=== PATIENT | female | born 1935 | race Caucasian/White ===

== ENCOUNTER 2017-06-01 09:57 | Inpatient (IN) | payer MEDICARE, OTHER ==
[~2017-06-01] VITALS: Ht 162.6 cm; Wt 52.3 kg
[~2017-06-01 09:57] MED LIST: ASPI325T PO; DONE5TAB14 PO; LEXA5TAB PO; LOVA40TA PO; NAME10TA PO; PROT40TA PO; SERO50TA4 PO; SYMB160A INH; SYNT25TA PO; VITA400C28 PO; VITATAB25 PO
[2017-06-01 09:59] VITALS: BP 148/71; PULSE 111; RESP 20; TEMP 97.9; O2SAT 99
[2017-06-01] MEDS ORDERED: FLUP5TAB (10:17)
[2017-06-01] MEDS ORDERED: ASPI-516 CHEW (10:17)
[2017-06-01] MEDS ORDERED: VITATAB25 PO (10:17)
[2017-06-01] MEDS ORDERED: MEMA1TAB PO (10:17)
[2017-06-01] MEDS ORDERED: LEVO50TA4 PO (10:17)
--- NOTE | 2017-06-01 10:28 | PD ---
HPI Chief Complaint: Psychiatric Symptoms Time Seen by Provider: 10:17 Travel History International Travel<30 days: No Contact w/Intl Traveler<30days: No Traveled to known affect area: No History of Present Illness HPI 81-year-old female presents to emergency with her caregiver Vicky complaining of auditory and visual hallucinations. Patient states that this is not normal for her. Vicky normally sits up her medication for her. Patient denies falls , pain, urinary discomfort or problems. Patient has a history of CVA and dementia for which she takes medication. Patient denies feeling weak, fever, chills, chest pain, shortness of breath, back pain. Patient states compliance with her medication. Vicky stated that patient believes she was answering a phone with a man however, states that this is not the case. Patient has also been mumbling. PFSH Past Medical History Asthma: Yes Cancer: Yes (LYMPHOMA LEFT LEG STATED BY PATIENT (ON MEDICAL RECORD)) Cardiovascular Problems: Yes (PACEMAKER) High Cholesterol: Yes Chemotherapy: Yes (LYMPHOMA) Dementia: Yes Gastrointestinal Disorders: Yes (PER MEDICAL RECORD) Genitourinary: Yes (PER MEDICAL RECORD) Kidney Stones: Yes Musculoskeletal: Yes (R ELBOW SURGERY) Neurologic: No (PER MEDICAL RECORD) Respiratory: Yes (PER MEDICAL RECORD) Past Surgical History Abdominal Surgery: Yes (colectomy) Cholecystectomy: Yes Other Surgery: Yes (PER MEDICAL RECORD) Social History Alcohol Use: No Tobacco Use: No Substance Use: No Allergies-Medications (Allergen,Severity, Reaction): Coded Allergies: No Known Allergies (Verified Adverse Reaction, Unknown, 06/01/17) Reported Meds & Prescriptions Reported Meds & Active Scripts Active Macrobid (Nitrofurantoin Monoh/Nitrofur Macro) 100 Mg Cap 100 Mg PO BID 7 Days Reported Aspirin 81 Mg Chew 81 Mg CHEW DAILY Vitamin D-[address] (Cholecalciferol) 1,000 Unit Tab 1,000 Units PO DAILY Memantine 5 Mg Tab 5 Mg PO BID Levothyroxine (Levothyroxine Sodium) 50 Mcg Tab 50 Mcg PO DAILY Fluphenazine (Fluphenazine HCl) 5 Mg Tab Review of Systems Except as stated in HPI: all other systems reviewed are Neg Physical Exam Narrative GENERAL: Well-nourished, well-developed patient. A+Ox3 in NAD. Anxious without her caregiver, Vicky around SKIN: Focused skin assessment warm/dry. HEAD: Normocephalic.Atraumatic EYES: No scleral icterus. No injection or drainage. PERRLA EOMI NECK: Supple, trachea midline. No JVD or lymphadenopathy. No midline tenderness CARDIOVASCULAR: Regular rate and rhythm without murmurs, gallops, or rubs. RESPIRATORY: Breath sounds equal bilaterally. No accessory muscle use. GASTROINTESTINAL: Abdomen soft, non-tender, nondistended. MUSCULOSKELETAL: No cyanosis, or edema. BACK: Nontender without obvious deformity. No CVA tenderness. No midline tenderness Data Data Last Documented VS Vital Signs Date Time Temp Pulse Resp B/P (MAP) Pulse Ox O2 Delivery O2 Flow Rate FiO2 06/01/17 18:15 97.9 75 20 150/81 (104) 97 Room Air Orders Orders Complete Blood Count With Diff (06/01/17 10:25) Comprehensive Metabolic Panel (06/01/17 10:25) Urinalysis - C+S If Indicated (06/01/17 10:25) Blood Glucose (06/01/17 10:25) Ecg Monitoring (06/01/17 10:25) Iv Access Insert/Monitor (06/01/17 10:25) Oximetry (06/01/17 10:25) Sodium Chloride 0.9% Flush (Ns Flush) (06/01/17 10:30) Sodium Chlorid 0.9% 500 Ml Inj (Ns 500 M (06/01/17 10:30) Ct Brain W/O Iv Contrast(Rout) (06/01/17 ) Alcohol (Ethanol) (06/01/17 10:30) Drug Screen, Random Urine (06/01/17 10:30) Thyroid Stimulating Hormone (06/01/17 10:30) Urine Culture (06/01/17 11:00) Lorazepam Inj (Ativan Inj) (06/01/17 12:37) Diphenhydramine Inj (Benadryl Inj) (06/01/17 13:45) Lorazepam Inj (Ativan Inj) (06/01/17 14:00) Lorazepam Inj (Ativan Inj) (06/01/17 14:15) Ceftriaxone Inj (Rocephin Inj) (06/01/17 14:15) Psych Screen (06/01/17 14:03) Labs Laboratory Tests Test 06/01/17 11:00 06/01/17 12:30 White Blood Count 5.5 TH/MM3 Red Blood Count 3.78 MIL/MM3 Hemoglobin 12.7 GM/DL Hematocrit 37.8 % Mean Corpuscular Volume 100.0 FL Mean Corpuscular Hemoglobin 33.6 PG Mean Corpuscular Hemoglobin Concent 33.6 % Red Cell Distribution Width 13.3 % Platelet Count 161 TH/MM3 Mean Platelet Volume 8.9 FL Neutrophils (%) (Auto) 65.8 % Lymphocytes (%) (Auto) 25.3 % Monocytes (%) (Auto) 6.7 % Eosinophils (%) (Auto) 1.7 % Basophils (%) (Auto) 0.5 % Neutrophils # (Auto) 3.6 TH/MM3 Lymphocytes # (Auto) 1.4 TH/MM3 Monocytes # (Auto) 0.4 TH/MM3 Eosinophils # (Auto) 0.1 TH/MM3 Basophils # (Auto) 0.0 TH/MM3 CBC Comment DIFF FINAL Differential Comment Urine Color YELLOW Urine Turbidity CLEAR Urine pH 6.5 Urine Specific [place] 1.013 Urine Protein NEG mg/dL Urine Glucose (UA) NEG mg/dL Urine Ketones NEG mg/dL Urine Occult Blood TRACE Urine Nitrite NEG Urine Bilirubin NEG Urine Urobilinogen LESS THAN 2.0 MG/DL Urine Leukocyte Esterase LARGE Urine RBC 3 /hpf Urine WBC 7 /hpf Urine Squamous Epithelial Cells <1 /hpf Urine Transitional Epithelial Cells <1 /hpf Urine Hyaline Casts 1 /lpf Urine Mucus FEW /lpf Microscopic Urinalysis Comment CATH-CULTURE IND Urine Opiates Screen NEG Urine Barbiturates Screen NEG Urine Amphetamines Screen NEG Urine Benzodiazepines Screen NEG Urine Cocaine Screen NEG Urine Cannabinoids Screen NEG Blood Urea Nitrogen 7 MG/DL Creatinine 0.80 MG/DL Random Glucose 93 MG/DL Total Protein 6.8 GM/DL Albumin 3.6 GM/DL Calcium Level 9.0 MG/DL Alkaline Phosphatase 57 U/L Aspartate Amino Transf (AST/SGOT) 21 U/L Alanine Aminotransferase (ALT/SGPT) 20 U/L Total Bilirubin 0.5 MG/DL Sodium Level 142 MEQ/L Potassium Level 3.4 MEQ/L Chloride Level 108 MEQ/L Carbon Dioxide Level 27.2 MEQ/L Anion Gap 7 MEQ/L Estimat Glomerular Filtration Rate 69 ML/MIN Thyroid Stimulating Hormone 3rd Gen 0.882 uIU/ML Ethyl Alcohol Level LESS THAN 3 MG/DL [facility] Medical Decision Making Medical Screen Exam Complete: Yes Emergency Medical Condition: Yes Differential Diagnosis Acute on chronic dementia versus psychosis versus delirium versus UTI Narrative Course 81-year-old female presents to emergency with her caregiver Vicky complaining of auditory and visual hallucinations. Patient states that this is not normal for her. Vicky normally sets up her medication for her. Patient denies taking excessive medication. Patient denies falls, pain, urinary discomfort or problems. Patient denies feeling weak, fever, chills, chest pain, shortness of breath, back pain. Patient states compliance with her medication. Patient has a history of CVA and dementia for which she takes medication. Vicky stated that patient believes she was answering a phone with a man however, states that this is not the case. Patient has also been mumbling. Denies any suicidal or homicidal ideations at this point. Head CT- stable Urine- WBCs, prescribe antibiotics for urinary tract infection Labs- Stable, except for mentioned UA above. I spoke with Brandin, the caregiver, and she stated that the patient has been worsening over the last 3 days. She states that she has been seeing animals and children that are not actually in the house. She also states that patient spoke to a man (and was not really on the phone) became upset and stated she was going to kill him. Brandin does not actually think patient is homicidal. Brandin stated that patient was admitted 2 weeks ago or a similar incident. She called the psychiatric unit here and they advised her to come to the emergency department for evaluation. She denies any new medication use or changes at this time. Brandin would appreciated an evaluation by psychiatry as patient was doing well as of last discharge from the beginning of this month but now is not. She is concerned that the medication needs to be adjusted. Patient was given 1 mg Ativan IV for irritability. Patient remained anxious. Spoke with my attending and she recommended Benadryl. This greatly reduced her anxiety. Further evaluation of the EMR demonstrated another chart, [id number], which was the admission the patient and caregiver spoke of. After review, I still feel that this patient would benefit from Psych eval. I spoke with my attending , Dr. Vuong and she agreed that pt would benefit from a psych eval based off her normal WBCs and presenting symptoms of hallucinations. Pt is medically cleared to see psych. Diagnosis Primary Impression: Urinary tract infection Qualified Codes: N30.00 - Acute cystitis without hematuria Scripts Nitrofurantoin Monohydrate Macrocrystals (Macrobid) 100 Mg Cap 100 MG PO BID for Infection for 7 Days, #14 CAP 0 Refills Prov: Patricia Voung MD 06/01/17 Condition: Stable [place] Jun 01, 2017 10:28
[2017-06-01] MEDS ORDERED: SODIUM CHLORID 0.9% 500 ML INJ 500 ML IV ONE (10:30)
[2017-06-01] MEDS ORDERED: SODIUM CHLORIDE 0.9% FLUSH 5 ML FLUSH IV FLUSH PRN (10:30)
[2017-06-01 11:19] LABS: AUTOMATED NEUTROPHIL # 3.6 TH/MM3 (1.8-7.7); BASOPHIL % 0.5 % (0.0-2.0); EOSINOPHIL # 0.1 TH/MM3 (0-0.4); EOSINOPHIL % 1.7 % (0.0-4.0); HEMATOCRIT 37.8 % (35.0-46.0); HEMO FLAGS DIFF FINAL; LYMPH % 25.3 % (9.0-44.0); LYMPHOCYTE # 1.4 TH/MM3 (1.0-4.8); MEAN CORPUSCULAR HEMOGLOBIN 33.6 PG (27.0-34.0); MEAN CORPUSCULAR HGB CONC 33.6 % (32.0-36.0); MONO % 6.7 % (0.0-8.0); NEUT % 65.8 % (16.0-70.0); PLATELET COUNT 161 TH/MM3 (150-450); RED BLOOD COUNT 3.78 MIL/MM3 (4.00-5.30); RED CELL DISTRIBUTION WIDTH 13.3 % (11.6-17.2); WHITE BLOOD COUNT 5.5 TH/MM3 (4.0-11.0)
[2017-06-01 11:25] LABS: BLOOD, URINE TRACE (NEG); GLUCOSE,URINE NEG (NEG); HYALINE CAST, URINE 1 /lpf (RARE); KETONE, URINE NEG (NEG); MUCUS URINE FEW /lpf (OCC); NITRITE,URINE NEG (NEG); PH, URINE 6.5 (5.0-8.5); SQUAMOUS EPITHELIAL CELL URINE <1 /hpf (0-5); TRANSITIONAL EPI CELLS, URINE <1 /hpf; URINE COLOR YELLOW (YELLW/STRAW)
[2017-06-01 11:26] LABS: COMMENT (UR) CATH-CULTURE IND; CULTURE IF INDICATED CATH CULTURE IND
--- NOTE | 2017-06-01 11:37 | RADRPT ---
EXAM DATE/TIME: 06/01/2017 10:59 [facility] COMPARISON: CT BRAIN W/O CONTRAST, February 10, 2014, 19:39. INDICATIONS : Hallucinations for 2 days RADIATION DOSE: 56.41 CTDIvol (mGy) MEDICAL HISTORY : None SURGICAL HISTORY : None. ENCOUNTER: Initial ACUITY: 2 days PAIN SCALE: 0/10 LOCATION: cranial TECHNIQUE: Multiple contiguous axial images were obtained of the head. Using automated exposure control and adj ustment of the mA and/or kV according to patient size, radiation dose was kept as low as reasonably a chievable to obtain optimal diagnostic quality images. DICOM format image data is available electro nically for review and comparison. FINDINGS: CEREBRUM: The ventricles and sulci are mildly prominent. There is a focal area of encephalomalacia in the left parasagittal frontal polar region and left temporal tip characteristic of old infarction. There is decreased attenuation in the white matter of the occipital lobes bilaterally. No evidence of mass ef fect, acute hemorrhage, or extra-axial blood. POSTERIOR FOSSA: Stable atrophy of the superior right cerebellum. 4th ventricle is in the midline. EXTRACRANIAL: The visualized portion of the orbits is intact. SKULL: The calvaria is intact. No evidence of skull fracture. CONCLUSION: 1. No acute findings in the brain. 2. Old infarctions in the left frontal and left temporal lobe, decreased attenuation in the occipital white matter, and right superior cerebellar atrophy characteristic of degenerative changes. Yves Mckoy MD on June 01, 2017 at 11:32 Board Certified Radiologist. This report was verified electronically.
[2017-06-01] MEDS: LORazepam 2 MG/ML VIAL ONE ×2 (12:37→13:42)
[2017-06-01 13:15] LABS: ALCOHOL LESS THAN 3 MG/DL (0-5)
[2017-06-01 13:33] LABS: ALT (GPT) 20 U/L (10-53); ANION GAP 7 MEQ/L (5-15); AST (GOT) 21 U/L (15-37); BICARBONATE 27.2 MEQ/L (21.0-32.0); BLOOD UREA NITROGEN 7 MG/DL (7-18); CHLORIDE 108 MEQ/L (98-107); GLOMERULAR FILTRATION RATE 69 ML/MIN (>89); POTASSIUM 3.4 MEQ/L (3.5-5.1); SODIUM (NA) 142 MEQ/L (136-145)
[2017-06-01 13:36] LABS: ALKALINE PHOSPHATASE 57 U/L (45-117); TOTAL BILIRUBIN ADULT 0.5 MG/DL (0.2-1.0)
[2017-06-01] MEDS ORDERED: diphenhydrAMINE HCL 50 MG/ML VIAL IV PUSH ONE (13:45)
[2017-06-01 13:51] VITALS: BP 135/80; PULSE 80; RESP 18; TEMP 97.9; O2SAT 99
[2017-06-01] MEDS ORDERED: LORazepam 2 MG/ML VIAL IM ONE (14:00)
[2017-06-01 14:07] VITALS: O2SAT 97
[2017-06-01] MEDS ORDERED: cefTRIAXone INJ 1,000 MG in SODIUM CHLORIDE 0.9% INJ 100 ML IV ONE (14:15)
[2017-06-01] MEDS ORDERED: LORazepam 2 MG/ML VIAL IV PUSH ONE (14:15)
[2017-06-01] MEDS ORDERED: CEPH-460 PO (14:49)
[2017-06-01] MEDS ORDERED: MACR100C2 PO (14:51)
[2017-06-01 17:12] VITALS: BP 140/72; PULSE 80; RESP 20; TEMP 97.9; O2SAT 97
[2017-06-01 18:15] VITALS: BP 150/81; PULSE 75; RESP 20; TEMP 97.9; O2SAT 97
[2017-06-01 21:00] VITALS: BP 117/58; PULSE 73; RESP 20; O2SAT 96
[2017-06-02 08:36] VITALS: BP 122/65; PULSE 73; RESP 20; O2SAT 95
[2017-06-02] MEDS ORDERED: HALOPERIDOL LACTATE 5 MG/ML AMP IM PRN (09:30)
[2017-06-02] MEDS ORDERED: ACETAMINOPHEN 325 MG TAB PO PRN (09:30)
[2017-06-02] MEDS ORDERED: HALOPERIDOL 2 MG TAB PO PRN (09:30)
[2017-06-02] MEDS ORDERED: POTASSIUM CHLORIDE 10 MEQ CONTROLLED RELEASE TAB PO ONE (09:30)
[2017-06-02] MEDS ORDERED: MAGNESIUM HYDROXIDE SUSP 30 ML CUP PO PRN (09:30)
[2017-06-02] MEDS ORDERED: diphenhydrAMINE HCL 50 MG CAP PO PRN (09:30)
[2017-06-02] MEDS ORDERED: diphenhydrAMINE HCL 50 MG/ML VIAL IM PRN (09:30)
[2017-06-02] MEDS ORDERED: ALUMINUM/MAGNESIUM/SIMETH 30 ML CUP PO PRN (09:30)
[2017-06-02] MEDS ORDERED: POTASSIUM CHLORIDE 20 MEQ CONTROLLED RELEASE TAB PO ONE (09:45)
--- NOTE | 2017-06-02 10:35 | MH ---
cc: JUAN CUNNINGHAM DATE OF ADMISSION: 06/02/2017 ADMISSION DIAGNOSES 1. 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 Rule out component of delirium from UTI. LEGAL STATUS: The patient is involuntary and is incapacitated to consent for medications / treatment. I have initiated a petition for involuntary psychiatric hospitalization and have consulted for second opinion. HISTORY OF PRESENT ILLNESS Ms. Duff is a 81-year-old female with a history of dementia who presents on a voluntary basis brought in by her caregiver out of concern for audiovisual hallucinations. The patient was apparently quite agitated in the emergency department and required medication with Ativan and Benadryl. She was found to have a possible UTI and has been started on Macrobid for this. Reviewing the electronic medical record, I note that see the patient was admitted under a different medical record number [id number] under the name Janet Duff from a May 16 through May 19 of this year under Dr. Mendoza. Patient seen and examined. Chart reviewed. Case discussed with nursing staff. The patient is likely an unreliable historian and seems fairly confused overall. She tells me this morning that she came in "I guess to be checked out." Presently she denies any audiovisual hallucinations, and I can elicit no delusional material. Mood is fair, and I can elicit no depressive or hypomanic / manic symptoms. She denies any suicidal or homicidal ideation but seems unreliable to contract for safety in her present state. She reports her sleep and appetite are fair. The patient is fairly sparse historian overall and the veracity of the information she provides below was to be questioned. No physical complaints. I did obtain collateral from her caregiver Brandin Hill at the number listed in the electronic medical record. She notes that she has been caring for the patient for the past 4 years. She reports that following the admission under Dr. Mendoza a few weeks ago the patient was temporarily somewhat improved but once again decompensated and began to hallucinate. Ms. Hill notes that the patient has a history of dementia and before that bipolar disorder. She also notes that the patient has a history of suicide attempts x2. She is particularly concerned about the patient's agitated and aggressive behavior of late. PAST PSYCHIATRIC HISTORY The patient denies any history of psychiatric diagnosis but see collateral from caregiver above. She denies any inpatient or outpatient psychiatric treatment but was recently admitted under Dr. Mendoza. She denies any history of suicide attempts but see above. FAMILY HISTORY The patient denies any family history of mental illness. CHEMICAL DEPENDENCY HISTORY: The patient denies any abuse of drugs or alcohol. SOCIAL HISTORY The patient reports that she lives with her day care center director Brandin and Brandin's son Brice, she is . She has one son who is in prison. She is high school educated. She is a retired teacher. She denies any history. Denies any access to guns or firearms. PAST MEDICAL HISTORY See electronic medical record. REVIEW OF SYSTEMS Limited as the patient is fairly poor historian but reviewed with the patient and negative except as noted above. PHYSICAL EXAMINATION VITAL SIGNS: Temperature is 97.9, pulse 73, respirations 20, blood pressure 122/65, pulse oximetry 95% on room air. IN GENERAL: Physical examination completed by the ED provider. On my examination today, the patient appears to be in no acute physical distress. No motor abnormalities noted. LABORATORY FINDINGS: Labs and vitals. Labs reviewed: CBC is unremarkable. CMP reveals hypokalemia and mildly decreased GFR at 69. TSH within normal limits. Toxicology negative. Alcohol level undetectable. Urinalysis reveals seven white blood cells and large leukocyte esterase. Urine culture is pending. MENTAL STATUS EXAM The patient is in hospital gown. She is fairly disheveled. She is awake, alert and oriented to person and 2017. She does know that she has a hospital. Her registration is 3/3 but her recall is 0/3 in 3 minutes. She is able to name two items but and repeat a phrase. She struggles with attention / concentration testing such as world backwards. No motor abnormalities noted. Speech is within normal limits for rate, tone and volume. Language and fund of knowledge seem reduced. Memory is as above and seems generally impaired on clinical exam. Mood is fair and affect blunted. Thought process reveals paucity of thought. No loosening of associations. No zachary delusional material elicited. Denies audiovisual hallucinations. Denies suicidal or homicidal ideation but seems unreliable to contract for safety at this time. Insight and judgment are poor. ASSESSMENT/PLAN This is a 81-year-old female with psychiatric history as detailed above who presents voluntarily for psychiatric evaluation. The patient has apparently failed to improve following her recent psychiatric hospitalization. She remains intermittently aggressive and hallucinating. Differential diagnosis would include dementia with behavioral disturbance including possible psychosis in the setting of dementia as well as delirium related to UTI. The patient requires psychiatric hospitalization at this time for safety, observation and stabilization. Admit inpatient. Involuntary status. I have completed first opinion. Consult for second opinion. Request health care surrogate and guardian advocate. Consult to the hospitalist. Check BMP, magnesium, hemoglobin A1c and lipid panel in the morning. Replete potassium. Check EKG for a QTc. To replace the Prolixin that the patient was previously started on I will start the patient on Seroquel 25 mg at bedtime for the management of behavioral disturbance in the setting of her dementia and possible delirium. I will continue her Namenda. I will continue to Macrobid for the UTI. I will continue the patient's Synthroid, aspirin and vitamin D supplement. Haldol as needed for severe agitation, Benadryl as needed for EPS, melatonin as needed for sleep. PT consult. Fall precautions. Vitals every shift. Counselor to see. Disposition planning. Estimated length of stay: 5-7 days. Juan Worley /9:35 AM /9:48 AM MTDD
--- NOTE | 2017-06-02 11:24 | PD.CONS ---
HPI Service [facility] Consult Requested By Primary Care Physician Martinez Grace MD Diagnoses: History of Present Illness 81-year-old female with a history of CVA, dementia, who is brought in by caregiver due to recent confusion, with auditory and visual hallucinations. Caregiver not at bedside at the time of examination. Patient says she feels all right. Denies any chest pain, shortness of breath, nausea, vomiting, diarrhea, constipation, dysuria. She reports generalized weakness, however seems to feel this is a chronic issue. Patient does not have very good historian, and past medical history obtained through chart review. Review of Systems Performed and negative except for history of present illness and past medical history. Past Family Social History Allergies: Coded Allergies: No Known Allergies (Verified Allergy, Unknown, 06/02/17) Past Medical History History of CVA History of depression with suicide attempt. Dementia Hypothyroidism Patient has a remote history of lymphoma. 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 Hypovitaminosis D. Stress hyperlipidemia. Past Surgical History Colectomy Cholecystectomy History of right elbow surgery. port placement Reported Medications Reported Meds & Active Scripts Active Macrobid (Nitrofurantoin Monoh/Nitrofur Macro) 100 Mg Cap 100 Mg PO BID 7 Days Reported Aspirin 81 Mg Chew 81 Mg CHEW DAILY Vitamin D-[address] (Cholecalciferol) 1,000 Unit Tab 1,000 Units PO DAILY Memantine 5 Mg Tab 5 Mg PO BID Levothyroxine (Levothyroxine Sodium) 50 Mcg Tab 50 Mcg PO DAILY Fluphenazine (Fluphenazine HCl) 5 Mg Tab Family History Attempted, patient is uncertain about family history. Social History Patient denies any history of alcohol, tobacco, substance abuse. She lives with caregiver, Brandin. Physical Exam Vital Signs Vital Signs Date Time Temp Pulse Resp B/P (MAP) Pulse Ox O2 Delivery O2 Flow Rate FiO2 06/02/17 08:36 73 20 122/65 (84) 95 Room Air 06/01/17 21:00 73 20 117/58 (77) 96 Room Air 06/01/17 18:15 97.9 75 20 150/81 (104) 97 Room Air 06/01/17 17:12 97.9 80 20 140/72 (94) 97 Room Air 06/01/17 14:07 97 Room Air 06/01/17 13:51 97.9 80 18 135/80 (98) 99 Room Air Physical Exam GENERAL: This is a well-nourished, well-developed patient, in no apparent distress. Oriented to year, not to month. SKIN: No rashes, ecchymoses or lesions. Cool and dry. HEAD: Atraumatic. Normocephalic. No temporal or scalp tenderness. EYES: Pupils equal round and reactive. Extraocular motions intact. No scleral icterus. No injection or drainage. ENT: Nose without bleeding, purulent drainage or septal hematoma. Throat without erythema, tonsillar hypertrophy or exudate. Uvula midline. Airway patent. NECK: Trachea midline. No JVD .. Supple, nontender, no meningeal signs. Patient does have 2 x 2 centimeter right cervical lymph node which appears mobile, nontender. No other lymphadenopathy. CARDIOVASCULAR: Regular rate and rhythm without murmurs, gallops, or rubs. RESPIRATORY: Clear to auscultation. Breath sounds equal bilaterally. No wheezes , rales, or rhonchi. GASTROINTESTINAL: Abdomen soft, non-tender, nondistended. No hepato-splenomegaly , or palpable masses. No guarding. MUSCULOSKELETAL: Extremities without clubbing, cyanosis, or edema. No joint tenderness, effusion, or edema noted. No calf tenderness. Negative Homans sign bilaterally. NEUROLOGICAL: Awake and alert. Cranial nerves II through XII intact. Motor and sensory grossly within normal limits. Five out of 5 muscle strength in all muscle groups. Normal speech. Laboratory Laboratory Tests Test 06/01/17 12:30 Blood Urea Nitrogen 7 Creatinine 0.80 Random Glucose 93 Total Protein 6.8 Albumin 3.6 Calcium Level 9.0 Alkaline Phosphatase 57 Aspartate Amino Transf (AST/SGOT) 21 Alanine Aminotransferase (ALT/SGPT) 20 Total Bilirubin 0.5 Sodium Level 142 Potassium Level 3.4 Chloride Level 108 Carbon Dioxide Level 27.2 Anion Gap 7 Estimat Glomerular Filtration Rate 69 Thyroid Stimulating Hormone 3rd Gen 0.882 Ethyl Alcohol Level LESS THAN 3 Date/Time Source Procedure Growth Status 06/01/17 11:00 Urine Catheterized Urine Urine Culture - Final 10-50,000 CFU/ML MIXED GRAM POSITIVE ... Complete Result Diagram: 06/01/17 1100 06/01/17 1230 Assessment and Plan Assessment and Plan //Dementia. //Psychosis. -CT brain with no acute findings. Old infarct seen. -TSH within treatment range. -Continue home memantine. - As per psychiatry. //Hypothyroidism.-Continue home medication. She states within normal limits. //Possible UTI. Only 7 white blood cells on UA. Large leukocyte esterase. Mixed davis on urine cx. Patient denies any symptoms. -Discontinue antibiotics. Continue to monitor.. //History of lymphoma. //Patient does have a 2 x 2 centimeter right cervical lymph node versus lipoma. - CBC unremarkable. This should be followed closely with workup as outpatient. //History of CVA. CT with no acute findings. Continue home aspirin. //Hypovitaminosis D. Chronic. Continue home medications. //History of asthma. Symbicort is on old Home med list. wioll continue pending home meds list comfirmation. /Hypokalemia. Mild. Potassium 3.4 on admission. Replaced. Monitor. //Hyperlipidemia. Pending confirmation of home medications. Discussed Condition With Patient, nurse James Hawkins MD Jun 02, 2017 11:24
[2017-06-02 13:49] VITALS: BP 128/61; PULSE 85; RESP 16; TEMP 98.1; O2SAT 99
[2017-06-02 18:00] VITALS: BP 119/58; PULSE 116; RESP 16; TEMP 97.3; O2SAT 97
[2017-06-02] MEDS: MELATONIN 5 MG TAB PO PRN (22:08)
[2017-06-02] MEDS: QUEtiapine FUMARATE 25 MG TAB PO SCH (22:08)
[2017-06-02] MEDS: MEMANTINE HCL 5 MG TAB PO SCH (22:09)
[2017-06-02] MEDS: BUDESONIDE-FORMOTEROL 80/4.5 MCG INHALER INH SCH (22:41)
[2017-06-02] MEDS: NITROFURANTOIN MONOHYD MACROCR 100 MG CAP PO SCH (22:41)
[2017-06-03] MEDS: LEVOTHYROXINE SODIUM 50 MCG TAB PO SCH (06:17)
[2017-06-03 06:25] VITALS: BP 114/55; PULSE 60; RESP 16; TEMP 97.8; O2SAT 98
[2017-06-03] MEDS: CHOLECALCIFEROL (VIT D3) 1000 UNIT TAB PO SCH (08:34)
[2017-06-03] MEDS: MEMANTINE HCL 5 MG TAB PO SCH ×2 (08:34→20:30)
[2017-06-03] MEDS: ASPIRIN 81 MG CHEW TAB CHEW SCH (08:34)
[2017-06-03] MEDS: BUDESONIDE-FORMOTEROL 80/4.5 MCG INHALER INH SCH ×2 (08:41→20:30)
[2017-06-03 08:42] LABS: ANION GAP 9 MEQ/L (5-15); BICARBONATE 25.4 MEQ/L (21.0-32.0); BLOOD UREA NITROGEN 13 MG/DL (7-18); CHLORIDE 107 MEQ/L (98-107); GLOMERULAR FILTRATION RATE 73 ML/MIN (>89); MAGNESIUM 1.7 MG/DL (1.5-2.5); POTASSIUM 3.8 MEQ/L (3.5-5.1); SODIUM (NA) 141 MEQ/L (136-145)
[2017-06-03 08:45] LABS: HDL CHOLESTEROL 54.3 MG/DL (40.0-60.0); LDL CHOLESTEROL 125 MG/DL (0-99)
[2017-06-03] MEDS: NICOTINE 21 MG/24 HR PATCH T-DERMAL SCH (09:00)
[2017-06-03] MEDS: NITROFURANTOIN MONOHYD MACROCR 100 MG CAP PO SCH ×2 (09:00→20:30)
[2017-06-03] MEDS: REMOVE OLD PATCH T-DERMAL SCH (09:00)
--- NOTE | 2017-06-03 12:19 | HHI.PYPN ---
Subjective Remarks This is a request for second opinion. Patient was seen and case discussed with nursing. Admission note was reviewed and I agree with its contents. Patient remains confused. She is alert and oriented 2. She says her hallucinations have resolved but she is not a good historian. Behaving well on the unit. Mood is "good." Denies suicidal homicidal ideation intent or plan. Per records she was agitated at home Mental Status Examination Appearance: Appropriate Consciousness: Alert Orientation: Person, Place Motor Activity: Other (not tested) Speech: Unremarkable Language: Other (hard of hearing) Fund of Knowledge: Adequate Attention and Concentration: Adequate Memory: Impaired Mood: Appropriate Affect: Appropriate Thought Process & Associations: Disorganized Thought Content: Appropriate Hallucination Type: None Suicidal Ideation: No Suicidal Plan: No Suicidal Intention: No Homicidal Ideation: No Homicidal Plan: No Homicidal Intention: No Insight: Poor Judgment: Poor Results Labs Test 06/03/17 08:05 Blood Urea Nitrogen 13 MG/DL Creatinine 0.76 MG/DL Random Glucose 89 MG/DL Calcium Level 9.4 MG/DL Magnesium Level 1.7 MG/DL Sodium Level 141 MEQ/L Potassium Level 3.8 MEQ/L Chloride Level 107 MEQ/L Carbon Dioxide Level 25.4 MEQ/L Anion Gap 9 MEQ/L Estimat Glomerular Filtration Rate 73 ML/MIN Triglycerides Level 148 MG/DL Cholesterol Level 209 MG/DL LDL Cholesterol 125 MG/DL HDL Cholesterol 54.3 MG/DL Cholesterol/HDL Ratio 3.84 RATIO Date/Time Source Procedure Growth Status 06/01/17 11:00 Urine Catheterized Urine Urine Culture - Final 10-50,000 CFU/ML MIXED GRAM POSITIVE ... Complete Vitals/IOs Vital Signs Date Time Temp Pulse Resp B/P (MAP) Pulse Ox O2 Delivery O2 Flow Rate FiO2 06/03/17 06:25 97.8 60 16 114/55 (74) 98 06/02/17 08:36 Room Air Intake and Output 06/03/17 06/03/17 06/04/17 08:00 16:00 00:00 Intake Total 120 ml Balance 120 ml Assessment & Plan Problem List: (1) Dementia with behavioral disturbance ICD Codes: F03.91 - Unspecified dementia with behavioral disturbance Status: Acute Assessment & Plan I agree with the first opinion to continue petition. Criteria include agitation and confusion before admission Justification for Cont. Inpt. Patient would decompensate in a less restrictive setting Andrei Pinon DO Jun 03, 2017 12:19
[2017-06-03 12:42] LABS: HEMOGLOBIN A1a 1.2 %; HEMOGLOBIN A1b 0.8 %; HEMOGLOBIN F 0.8 %; HEMOGLOBIN LA1C 1.9 %; HEMOGLOBIN P3 3.4 %
[2017-06-03 18:00] VITALS: BP 107/55; PULSE 85; RESP 16; TEMP 97.1; O2SAT 97
[2017-06-03] MEDS: QUEtiapine FUMARATE 25 MG TAB PO SCH (20:30)
[2017-06-03] MEDS: ATORVASTATIN 20 MG TAB PO SCH (20:30)
--- NOTE | 2017-06-03 23:13 | EKG ---
Date Performed: 06/02/2017 Time Performed: 10:35:37 PTAGE: 81 years EKG: Sinus rhythm WITH RARE VENTRICULAR PREMATURE COMPLEXES BORDERLINE ECG Compared to the PREVIOUS TRACING from 02/18/14, no significant change DOCTOR: Cedric Pyle Interpretating Date/Time 06/03/2017 23:12:42
[2017-06-04] MEDS: LEVOTHYROXINE SODIUM 50 MCG TAB PO SCH (05:28)
[2017-06-04 06:00] VITALS: BP 124/58; PULSE 71; RESP 20; TEMP 96.6
[2017-06-04] MEDS: CHOLECALCIFEROL (VIT D3) 1000 UNIT TAB PO SCH (08:43)
[2017-06-04] MEDS: ASPIRIN 81 MG CHEW TAB CHEW SCH (08:43)
[2017-06-04] MEDS: NITROFURANTOIN MONOHYD MACROCR 100 MG CAP PO SCH (08:44)
[2017-06-04] MEDS: MEMANTINE HCL 5 MG TAB PO SCH ×2 (08:44→20:00)
[2017-06-04] MEDS: REMOVE OLD PATCH T-DERMAL SCH (08:45)
[2017-06-04] MEDS: NICOTINE 21 MG/24 HR PATCH T-DERMAL SCH (08:45)
[2017-06-04] MEDS: BUDESONIDE-FORMOTEROL 80/4.5 MCG INHALER INH SCH ×2 (08:48→20:00)
--- NOTE | 2017-06-04 13:36 | HHI.PYPN ---
Subjective Remarks Patient was seen and case discussed with nursing. Patient is pleasant and cooperative with exam. Social on the unit." Feeling fine." Is alert and oriented 2. Tolerating medications well. Insight remains poor Mental Status Examination Appearance: Appropriate Consciousness: Alert Orientation: Person, Place Motor Activity: Other (not tested) Speech: Unremarkable Language: Other (hard of hearing) Fund of Knowledge: Adequate Attention and Concentration: Adequate Memory: Impaired Mood: Appropriate Affect: Appropriate Thought Process & Associations: Disorganized Thought Content: Appropriate Hallucination Type: None Suicidal Ideation: No Suicidal Plan: No Suicidal Intention: No Homicidal Ideation: No Homicidal Plan: No Homicidal Intention: No Insight: Poor Judgment: Poor Results Labs Date/Time Source Procedure Growth Status 06/01/17 11:00 Urine Catheterized Urine Urine Culture - Final 10-50,000 CFU/ML MIXED GRAM POSITIVE ... Complete Vitals/IOs Vital Signs Date Time Temp Pulse Resp B/P (MAP) Pulse Ox O2 Delivery O2 Flow Rate FiO2 06/04/17 06:00 96.6 71 20 124/58 (80) 06/03/17 18:00 97 06/02/17 08:36 Room Air Assessment & Plan Problem List: (1) Dementia with behavioral disturbance ICD Codes: F03.91 - Unspecified dementia with behavioral disturbance Status: Acute Assessment & Plan Continue current treatment plan Justification for Cont. Inpt. Patient will decompensate in a less restrictive setting Andrei Pinon DO Jun 04, 2017 13:36
[2017-06-04] MEDS ORDERED: ATOR20TA15 PO (14:49)
--- NOTE | 2017-06-04 14:50 | HHI.PR ---
Subjective Remarks Follow-up for dementia, hypothyroidism, hypokalemia. Patient is currently doing well. Ambulating in the hallway without any difficulty. She denies any chest pain, shortness of breath, fever or chills. She denies any dysuria or hematuria. Patient inquires about going home. Objective Vitals Vital Signs Date Time Temp Pulse Resp B/P (MAP) Pulse Ox O2 Delivery O2 Flow Rate FiO2 06/04/17 06:00 96.6 71 20 124/58 (80) 06/03/17 18:00 97.1 85 16 107/55 (72) 97 I/O 06/03/17 06/03/17 06/03/17 06/04/17 06/04/17 06/04/17 07:00 15:00 23:00 07:00 15:00 23:00 Intake Total 240 ml 600 ml Balance 240 ml 600 ml Intake Oral 240 ml 360 ml Tube Feeding 240 ml # Voids 1 Result Diagram: 06/01/17 1100 06/03/17 0805 Imaging Last Impressions Head CT 06/01/17 0000 Signed Impressions: Service Date/Time: May 10:59 - CONCLUSION: 1. No acute findings in the brain. 2. Old infarctions in the left frontal and left temporal lobe, decreased attenuation in the occipital white matter, and right superior cerebellar atrophy characteristic of degenerative changes. Yves Mckoy MD Objective Remarks GENERAL: Alert, NAD. SKIN: Warm and dry. HEAD: Normocephalic. EYES: No scleral icterus. No injection or drainage. NECK: Supple, trachea midline. No JVD or lymphadenopathy. CARDIOVASCULAR: Regular rate and rhythm without murmurs, gallops, or rubs. RESPIRATORY: Breath sounds equal bilaterally. No accessory muscle use. GASTROINTESTINAL: Abdomen soft, non-tender, nondistended. MUSCULOSKELETAL: No cyanosis, or edema. BACK: Nontender without obvious deformity. No CVA tenderness. Procedures None A/P Assessment and Plan 81-year-old female with a history of CVA, dementia, hypothyroidism who is brought in by caregiver due to recent confusion, with auditory and visual hallucinations. She was admitted to the psychiatry unit. Hospitalist service was consulted for medical management. Dementia. Psychosis. -CT brain with no acute findings. Old infarct seen. -TSH within treatment range (0.882). -Continue home memantine. -Management per psychiatry team. Suspected UTI - Urine cx grew mixed davis. No need for abx. History of CVA - continue aspirin 81mg Qday. Hypokalemia - Potassium improved from 3.4 --> 3.8. Dyslipidemia - Total cholesterol 209, LDL 125. Started patient on Lipitor 20mg QHS. (Rx printed for discharge). Full code. Ambulation Patient can be discharged from medical standpoint. We will sign off. Should you have any question, please feel free to contact us ([facility]). Arnold Vera DO Jun 04, 2017 2:50 pm
[2017-06-04 18:19] VITALS: BP 120/71; PULSE 104; RESP 18; TEMP 97.3; O2SAT 99
[2017-06-04] MEDS: QUEtiapine FUMARATE 25 MG TAB PO SCH (20:00)
[2017-06-04] MEDS: ATORVASTATIN 20 MG TAB PO SCH (20:00)
[2017-06-05] MEDS: LEVOTHYROXINE SODIUM 50 MCG TAB PO SCH (05:17)
[2017-06-05 05:38] VITALS: BP 103/51; PULSE 58; RESP 17; TEMP 96; O2SAT 98
[2017-06-05] MEDS: REMOVE OLD PATCH T-DERMAL SCH (09:00)
[2017-06-05] MEDS: NICOTINE 21 MG/24 HR PATCH T-DERMAL SCH (09:00)
[2017-06-05] MEDS: MEMANTINE HCL 5 MG TAB PO SCH ×2 (09:26→20:50)
[2017-06-05] MEDS: CHOLECALCIFEROL (VIT D3) 1000 UNIT TAB PO SCH (09:26)
[2017-06-05] MEDS: ASPIRIN 81 MG CHEW TAB CHEW SCH (09:26)
[2017-06-05] MEDS: BUDESONIDE-FORMOTEROL 80/4.5 MCG INHALER INH SCH ×2 (09:26→20:49)
--- NOTE | 2017-06-05 09:45 | HHI.PYPN ---
Subjective Chief Complaint: dementia with behavioral disturbance Remarks Patient seen and examined with nurse. Chart reviewed. Case discussed with nursing staff reports that the patient is well behaved on the unit but forgetful. Case discussed with counselor who has been in contact with patient' s caregiver who would like to see the patient placed in a structured living environment. On my examination today, the patient is oriented to person and location only. She remains confused but calm. She says that she feels "fine" and is hopeful for discharge soon. No mood or psychotic symptoms noted. Denies side effects from medications. No physical complaints. Review of Systems ROS Limitations: Poor Historian Except as stated in HPI: all other systems reviewed are Neg Mental Status Examination Appearance: Appropriate Consciousness: Alert Orientation: Person, Place Motor Activity: Normal gait, Other (no motor abnormalities noted) Speech: Unremarkable Language: Adequate Fund of Knowledge: Adequate Attention and Concentration: Adequate Memory: Impaired (on clinical exam) Mood: Appropriate, Good Affect: Appropriate Thought Process & Associations: Circumstantial Thought Content: Appropriate Hallucination Type: None Delusion Type: None Suicidal Ideation: No Suicidal Plan: No Suicidal Intention: No Homicidal Ideation: No Homicidal Plan: No Homicidal Intention: No Insight: Poor Judgment: Poor Results Labs Date/Time Source Procedure Growth Status 06/01/17 11:00 Urine Catheterized Urine Urine Culture - Final 10-50,000 CFU/ML MIXED GRAM POSITIVE ... Complete Labs reviewed. Urine culture reveals mixed davis, and I note that the hospitalist has discontinued the patient's Macrobid. Vitals/IOs Vital Signs Date Time Temp Pulse Resp B/P (MAP) Pulse Ox O2 Delivery O2 Flow Rate FiO2 06/05/17 05:38 96.0 58 17 103/51 (68) 98 06/02/17 08:36 Room Air Assessment & Plan Problem List: (1) Dementia with behavioral disturbance ICD Codes: F03.91 - Unspecified dementia with behavioral disturbance Status: Acute Assessment & Plan Continue Seroquel and Namenda as ordered. Continue to monitor on the inpatient unit. Hospitalist input noted and appreciated. Continue other medications and care as ordered. Justification for Cont. Inpt. Risk for decompensation in less restrictive environment. Discharge Planning Placement? Case discussed with counselor. Request HC Surrog/Guard Advoc?: Yes Deepak Balderrama MD Jun 05, 2017 09:45
[2017-06-05 15:54] VITALS: BP 85/45; PULSE 78; RESP 18; TEMP 98.1; O2SAT 98
[2017-06-05] MEDS: ATORVASTATIN 20 MG TAB PO SCH (20:50)
[2017-06-05] MEDS: QUEtiapine FUMARATE 25 MG TAB PO SCH (20:50)
[2017-06-06 05:44] VITALS: BP 95/52; PULSE 72; RESP 16; TEMP 97.7; O2SAT 96
[2017-06-06] MEDS: LEVOTHYROXINE SODIUM 50 MCG TAB PO SCH (06:12)
--- NOTE | 2017-06-06 08:26 | HHI.PYPN ---
Subjective Chief Complaint: dementia with behavioral disturbance Remarks Patient seen and examined with nurse. Chart reviewed. Case discussed in treatment team. Per nursing staff, the patient got mildly upset when her roommate was discharged but since then has been fairly pleasant. On my examination today, the patient describes her mood as "real good." She remains at her confused baseline. She does become a little bit upset when I discussed report from counselor that her long-time caregiver no longer feels she can manage patient in the home, but she maintains behavioral control. Denies side effects from medications. No physical complaints. Review of Systems ROS Limitations: Poor Historian Except as stated in HPI: all other systems reviewed are Neg Mental Status Examination Appearance: Appropriate Consciousness: Alert Orientation: Person, Place Motor Activity: Normal gait, Other (no abnormal motor movements noted) Speech: Unremarkable Language: Adequate Fund of Knowledge: Adequate Attention and Concentration: Adequate Memory: Impaired (remains impaired on clinical exam) Mood: Good Affect: Appropriate Thought Process & Associations: Circumstantial Thought Content: Appropriate Hallucination Type: None Delusion Type: None Suicidal Ideation: No Homicidal Ideation: No Insight: Poor Judgment: Poor Results Labs Date/Time Source Procedure Growth Status 06/01/17 11:00 Urine Catheterized Urine Urine Culture - Final 10-50,000 CFU/ML MIXED GRAM POSITIVE ... Complete Labs reviewed. No new labs. Vitals/IOs Vital Signs Date Time Temp Pulse Resp B/P (MAP) Pulse Ox O2 Delivery O2 Flow Rate FiO2 06/06/17 05:44 97.7 72 16 95/52 (66) 96 06/02/17 08:36 Room Air Vital signs reviewed. I do note the patient's blood pressure is a little on the lower side. Assessment & Plan Problem List: (1) Dementia with behavioral disturbance ICD Codes: F03.91 - Unspecified dementia with behavioral disturbance Status: Acute Assessment & Plan I will divide Seroquel dose to 12.5mg BID to provide more even antipsychotic coverage throughout the day and hopefully to improve lower BPs. Encourage fluids. Continue to monitor on the inpatient unit. Continue other medications and care as ordered. Justification for Cont. Inpt. High risk for decompensation in a less restrictive environment. Discharge Planning Placement. Case discussed with counselor. Request HC Surrog/Guard Advoc?: Yes Deepak Balderrama MD Jun 06, 2017 08:26
[2017-06-06] MEDS: CHOLECALCIFEROL (VIT D3) 1000 UNIT TAB PO SCH (08:31)
[2017-06-06] MEDS: MEMANTINE HCL 5 MG TAB PO SCH ×2 (08:31→21:05)
[2017-06-06] MEDS: ASPIRIN 81 MG CHEW TAB CHEW SCH (08:31)
[2017-06-06] MEDS: BUDESONIDE-FORMOTEROL 80/4.5 MCG INHALER INH SCH ×2 (08:31→21:05)
--- NOTE | 2017-06-06 08:54 | PD.TTN ---
Patient Problems 1. Discharge planning 2. Medication compliance 3. Knowledge deficit 4. Lack of coping skills Progress Toward Goals Provider Present: Dr. Suad Balderrama Provider Input: Patient may have changes in medication pending assessment today. Patient has been tolerating medications with no side effects. Patient has some irritability. Nurse(s) Input: Patient is appropatie and compliant with medications. Patient does not display behavioral issues on the unit and is observed to be in the day room with limited interactions with peers. Patient does at time become irritable but is easily redirected. Psychiatric Counselors Present: LATOSHA ModiSid Psych Therapist Input: Counselor spoke with patient's caregiver and was informed that patient may not be able to return back to home. Caregiver stated that if she is able to get out of lease, then patient may go to [facility] home where patient had resided before. Group Spec/RT/OT/KNOX Present: Saeed Rico, OT Group Spec/RT/OT/KNOX Input: Patient does not attend groups on the unit. Aileen Beltran [facility] Jun 06, 2017 08:54
[2017-06-06] MEDS ORDERED: PILL SPLITTER OTHER PRN (12:45)
[2017-06-06] MEDS: QUEtiapine FUMARATE 25 MG TAB PO SCH ×2 (13:41→21:05)
[2017-06-06 18:00] VITALS: BP 139/61; PULSE 73; RESP 18; TEMP 97.2; O2SAT 98
[2017-06-06] MEDS: ATORVASTATIN 20 MG TAB PO SCH (21:05)
[2017-06-07 05:35] VITALS: BP 102/49; PULSE 62; RESP 16; TEMP 97.8; O2SAT 97
[2017-06-07] MEDS: LEVOTHYROXINE SODIUM 50 MCG TAB PO SCH (05:55)
[2017-06-07] MEDS: CHOLECALCIFEROL (VIT D3) 1000 UNIT TAB PO SCH (09:08)
[2017-06-07] MEDS: QUEtiapine FUMARATE 25 MG TAB PO SCH ×2 (09:08→20:36)
[2017-06-07] MEDS: MEMANTINE HCL 5 MG TAB PO SCH ×2 (09:08→20:36)
[2017-06-07] MEDS: ASPIRIN 81 MG CHEW TAB CHEW SCH (09:09)
[2017-06-07] MEDS: BUDESONIDE-FORMOTEROL 80/4.5 MCG INHALER INH SCH ×2 (09:09→20:36)
--- NOTE | 2017-06-07 09:51 | HHI.PYPN ---
Subjective Chief Complaint: dementia with behavioral disturbance Remarks Patient seen and examined. Chart reviewed. Blood pressures seems improved with spreading out Seroquel dose. Case discussed with nursing staff. On my examination today, patient is anxious to have news about her discharge plan. She is calm and pleasant. I discuss collateral from caregiver yesterday, and I have subsequently learned from caregiver that she will accept patient back tomorrow, . No SI/HI. No psychotic symptoms. No side effects from medications. No physical complaints. Review of Systems ROS Limitations: Poor Historian Except as stated in HPI: all other systems reviewed are Neg Mental Status Examination Appearance: Appropriate Consciousness: Alert Orientation: Person, Place Motor Activity: Normal gait, Other (no motor abnormalities noted) Speech: Unremarkable Language: Adequate Fund of Knowledge: Adequate Attention and Concentration: Adequate Memory: Impaired (impaired) Mood: Good Affect: Appropriate, Anxious (mild) Thought Process & Associations: Circumstantial Thought Content: Appropriate Hallucination Type: None Delusion Type: None Suicidal Ideation: No Homicidal Ideation: No Insight: Poor Judgment: Poor Results Labs Date/Time Source Procedure Growth Status 06/01/17 11:00 Urine Catheterized Urine Urine Culture - Final 10-50,000 CFU/ML MIXED GRAM POSITIVE ... Complete Labs reviewed. No new labs. Vitals/IOs Vital Signs Date Time Temp Pulse Resp B/P (MAP) Pulse Ox O2 Delivery O2 Flow Rate FiO2 06/07/17 05:35 97.8 62 16 102/49 (66) 97 Intake and Output 06/07/17 06/07/17 06/08/17 08:00 16:00 00:00 Intake Total 0 ml Balance 0 ml Assessment & Plan Problem List: (1) Dementia with behavioral disturbance ICD Codes: F03.91 - Unspecified dementia with behavioral disturbance Status: Acute Assessment & Plan Continue Seroquel 12.5 mg twice daily as ordered. Continue to monitor on the inpatient unit. Continue other medications and care as ordered. Justification for Cont. Inpt. Final discharge planning Discharge Planning Anticipate discharge tomorr, Request HC Surrog/Guard Advoc?: Yes Deepak Balderrama MD Jun 07, 2017 09:51
[2017-06-07 18:00] VITALS: BP 120/59; PULSE 84; RESP 17; TEMP 97.3; O2SAT 98
[2017-06-07] MEDS: ATORVASTATIN 20 MG TAB PO SCH (20:36)
[2017-06-07] MEDS: MELATONIN 5 MG TAB PO PRN (20:39)
[2017-06-08 05:53] VITALS: BP 112/51; PULSE 64; RESP 18; TEMP 97.5; O2SAT 98
[2017-06-08] MEDS: LEVOTHYROXINE SODIUM 50 MCG TAB PO SCH (06:13)
[2017-06-08] MEDS ORDERED: MELA5 PO (07:25)
[2017-06-08] MEDS ORDERED: SERO25TA PO (07:25)
[2017-06-08] MEDS ORDERED: Budeson-Formot 80-4.5 Mcg Inh INH (07:25)
--- NOTE | 2017-06-08 07:25 | HHI.DS ---
Psychiatry Discharge Summary Inpatient Psychiatric care?: Yes Advance Directive: No Reason Not Provided: Due to Patient Condition Mental Health AdvanceDirective: No Health Care Proxy: No Admission Admission Date Jun 02, 2017 at 09:23 Admission Diagnosis: (1) Dementia with behavioral disturbance ICD Code: F03.91 - Unspecified dementia with behavioral disturbance Brief History Ms. Duff is a 81-year-old female with a history of dementia who presents on a voluntary basis brought in by her caregiver out of concern for audiovisual hallucinations. The patient was apparently quite agitated in the emergency department and required medication with Ativan and Benadryl. She was found to have a possible UTI and has been started on Macrobid for this. Reviewing the electronic medical record, I note that see the patient was admitted under a different medical record number H [id number] under the name Janet Duff from a May 16 through May 19 of this year under Dr. Mendoza. Patient seen and examined. Chart reviewed. Case discussed with nursing staff. The patient is likely an unreliable historian and seems fairly confused overall. She tells me this morning that she came in "I guess to be checked out." Presently she denies any audiovisual hallucinations, and I can elicit no delusional material. Mood is fair, and I can elicit no depressive or hypomanic / manic symptoms. She denies any suicidal or homicidal ideation but seems unreliable to contract for safety in her present state. She reports her sleep and appetite are fair. The patient is fairly sparse historian overall and the veracity of the information she provides below was to be questioned. No physical complaints. I did obtain collateral from her caregiver Brandin Hill at the number listed in the electronic medical record. She notes that she has been caring for the patient for the past 4 years. She reports that following the admission under Dr. Mendoza a few weeks ago the patient was temporarily somewhat improved but once again decompensated and began to hallucinate. Ms. Hill notes that the patient has a history of dementia and before that bipolar disorder. She also notes that the patient has a history of suicide attempts x2. She is particularly concerned about the patient's agitated and aggressive behavior of late. Tobacco Use In Past 30 Days: No Tobacco Past 30 Days Alcohol Use: Never Hospital Course Patient was admitted to a locked, inpatient psychiatric unit. A general medical consultation was obtained. Appropriate precautions were in place throughout patient's hospital stay. Patient was seen and examined on unit by psychiatry and also visited by counselor. Psychotropic medications were adjusted. Patient tolerated medications well without side effects. Patient had improvement in presenting psychiatric symptomatology during the course of her hospital stay. There was no evidence of significant behavioral disturbance on the inpatient unit. There was no evidence of any suicidality or homicidality on the inpatient unit. Collateral was obtained from patient's caregiver who in the end decided to accept the patient back home. Counselor has made the necessary arrangements. On the day of discharge: Patient seen and examined. Chart reviewed. Case discussed with nursing staff. No behavioral issues noted overnight. Case discussed with counselor. On my examination today , the patient is calm and pleasant. She denies any suicidal or homicidal ideation, intent or plan and contracts for safety. She remains at her confused baseline. No mood or psychotic symptoms noted. She is in good spirits. She is excited about returning home to her caregiver. She denies side effects from medications. No physical complaints. Suicide and violence risk assessment on day of discharge both suggest lower imminent risk, although she remains somewhat chronically unpredictable as a consequence of her dementing illness, but this risk would not be ameliorated by a longer inpatient psychiatric hospital stay. Patient's level of function is adequate for planned level of outpatient care. Patient has maximized benefit from this inpatient psychiatric hospital stay and will be discharged into caregivers care today with psychiatric follow-up as arranged by counselor. Patient is also to follow-up with primary care. Patient to return to psychiatric emergency room for any concerning psychiatric symptoms. Results Blood Pressure 112 / 51 Vital Signs Date Time Temp Pulse Resp B/P (MAP) Pulse Ox O2 Delivery O2 Flow Rate FiO2 06/08/17 05:53 97.5 64 18 112/51 (71) 98 Laboratory Results Test 06/03/17 08:05 Cholesterol Level 209 MG/DL (120-200) HDL Cholesterol 54.3 MG/DL (40.0-60.0) Hemoglobin A1c 5.2 % (4.3-6.0) LDL Cholesterol 125 MG/DL (0-99) Triglycerides Level 148 MG/DL (42-150) Summary of Procedures None done Imaging Last Impressions Head CT 06/01/17 0000 Signed Impressions: Service Date/Time: May 10:59 - CONCLUSION: 1. No acute findings in the brain. 2. Old infarctions in the left frontal and left temporal lobe, decreased attenuation in the occipital white matter, and right superior cerebellar atrophy characteristic of degenerative changes. Yves Mckoy MD Pending results at discharge: No Medications # of Antipsychotic meds at D/C: 1 Approp Antipsych med options 1 - Minimum of three failed multiple trials of monotherapy. 2 - Documented plan to taper to monotherapy due to previous use of multiple meds OR cross-taper in progress at D/C. 3 - Documentation of augmentation of Clozapine. 4 - Justification other than those listed in allowable values 1-3, document here : Discharge Discharge Date: Jun 08, 2017 Discharge Diagnosis: (1) Dementia with behavioral disturbance Diagnosis: Principal (behavioral disturbance resolved) ICD Code: F03.91 - Unspecified dementia with behavioral disturbance Status: Acute Pt Condition on Discharge: Stable Discharge Disposition: Discharge Home Discharge Instructions Diet Instructions: As Tolerated, No Restrictions Activities you can perform: Weight Bearing as Natalia Scheduled Appointment: as per counselor's notes New Medications: Atorvastatin (Atorvastatin) 20 Mg Tab 20 MG PO HS for Cholesterol Management, #90 TAB 3 Refills Melatonin (Melatonin) 5 Mg Tab 5 MG PO HS PRN for INSOMNIA for 15 Days, TAB 1 Refill Quetiapine (Seroquel) 25 Mg Tab 12.5 MG PO BID for Mental Health for 15 Days, #15 TAB 1 Refill [Budeson-Formot 80-4.5 Mcg Inh] () 60 PUFF AERO 1 PUFF INH Q12HR for Health for 15 Days, 1 Refill Continued Medications: Aspirin (Aspirin) 81 Mg Chew 81 MG CHEW DAILY, TAB 0 Refills Cholecalciferol (Vitamin D-[address]) 1,000 Unit Tab 1000 UNITS PO DAILY for Nutritional Supplement, #1 BOTTLE 0 Refills Levothyroxine (Levothyroxine) 50 Mcg Tab 50 MCG PO DAILY for Thyroid, #30 TAB 0 Refills Memantine (Memantine) 5 Mg Tab 5 MG PO BID for Alzheimer's Dementia, TAB 0 Refills Discontinued Medications: Fluphenazine (Fluphenazine) 5 Mg Tab Nitrofurantoin Monohydrate Macrocrystals (Macrobid) 100 Mg Cap 100 MG PO BID for Infection for 7 Days, #14 CAP 0 Refills Discharge Time <= 30 minutes Mental Status Examination Appearance: Appropriate Consciousness: Alert Orientation: Person, Place Motor Activity: Normal gait, Other (no abnormal motor movements noted) Speech: Unremarkable Language: Adequate Fund of Knowledge: Adequate Attention and Concentration: Adequate Memory: Impaired (remains impaired on clinical exam) Mood: Good Affect: Appropriate, Euthymic Thought Process & Associations: Circumstantial Thought Content: Appropriate Hallucination Type: None Delusion Type: None Suicidal Ideation: No Suicidal Plan: No Suicidal Intention: No Homicidal Ideation: No Homicidal Plan: No Homicidal Intention: No Insight: Poor (chronic condition) Judgment: Poor (chronic condition) Discharge/Advance Care Plan Health Problems: (1) Dementia with behavioral disturbance Goals to promote your health * To prevent worsening of your condition and complications * To maintain your health at the optimal level Directions to meet your goals Take your medications as prescribed Follow your dietary instruction Follow activity as directed Keep your appointments as scheduled Take your immunizations and boosters as scheduled If your symptoms worsen call your PCP, if no PCP go to Urgent Care Center or Emergency Room For 30/01 questions related to your inpatient stay or results of tests pending at discharge, please contact Dr. Deepak Balderrama at Smoking is Dangerous to Your Health. Avoid second hand smoking Deepak Balderrama MD Jun 08, 2017 07:25
[2017-06-08] MEDS: CHOLECALCIFEROL (VIT D3) 1000 UNIT TAB PO SCH (08:35)
[2017-06-08] MEDS: BUDESONIDE-FORMOTEROL 80/4.5 MCG INHALER INH SCH (08:35)
[2017-06-08] MEDS: MEMANTINE HCL 5 MG TAB PO SCH (08:35)
[2017-06-08] MEDS: ASPIRIN 81 MG CHEW TAB CHEW SCH (08:35)
[2017-06-08] MEDS: QUEtiapine FUMARATE 25 MG TAB PO SCH (08:35)
== END 2017-06-08 13:00 | disposition home or self-care (01) | DRG 884 ==
LOC: NEPD 09:57 → NEDA 06-02 09:23 → H250 06-02 11:35 → H260 06-04 19:13
PROVIDERS: ADMIT Psychiatry & Neurology Psychiatry; ATTEND Psychiatry & Neurology Psychiatry
DX: F03.91 Unspecified dementia, unspecified severity, with behavioral disturbance (principal); E55.9 Vitamin D deficiency, unspecified; E03.9 Hypothyroidism, unspecified; Z86.73 Personal history of transient ischemic attack (TIA), and cerebral infarction without residual deficits; E78.5 Hyperlipidemia, unspecified; E87.6 Hypokalemia; H91.90 Unspecified hearing loss, unspecified ear; Z79.82 Long term (current) use of aspirin; Z85.72 Personal history of non-Hodgkin lymphomas
CPT/HCPCS: 70450; 80048; 80053; 80061; 80307; 81001; 83036; 83735; 84443; 85025; 87086; 93005; 96374; 96375; J0696; J1200; J2060; J7040